=== PATIENT | female | born 1990 | race African-American/Black ===

== ENCOUNTER 2019-02-16 15:41 | Emergency (ER) | payer SELFPAY ==
[~2019-02-16] VITALS: Ht 162.6 cm; Wt 78.9 kg
[2019-02-16 17:09] VITALS: Ht 162.6 cm; Wt 78.9 kg
[2019-02-16 20:41] VITALS: BP 98/77
== END 2019-02-16 20:41 | disposition home or self-care (01) ==
LOC: ED 15:41
DX: A59.01 Trichomonal vulvovaginitis (principal); N72 Inflammatory disease of cervix uteri
CPT/HCPCS: 87491; 87591; J0696

== ENCOUNTER 2019-03-07 16:56 | Emergency (ER) | payer SELFPAY ==
[~2019-03-07] VITALS: Ht 162.6 cm; Wt 79.6 kg
[2019-03-07 17:30] VITALS: Ht 162.6 cm; Wt 79.6 kg
[2019-03-07 19:53] LABS: microscopic required? NO
[2019-03-07 20:06] VITALS: BP 113/69
[2019-03-07 20:16] LABS: urine erythrocyte NEGATIVE (NEGATIVE)
== END 2019-03-07 20:06 | disposition home or self-care (01) ==
LOC: ED 16:56
PROVIDERS: Emergency Medicine
DX: A59.9 Trichomoniasis, unspecified (principal)
CPT/HCPCS: 87491; 87591